=== PATIENT | female | born 1990 ===

== ENCOUNTER 2017-12-25 10:05 | Emergency (ER) | payer OTHER ==
[~2017-12-25] VITALS: Ht 149.9 cm; Wt 46.3 kg
[2017-12-25] MEDS ORDERED: ULTRACET PO (13:45)
[2017-12-25] MEDS ORDERED: KETO10TA2 PO (13:45)
[2017-12-25] MEDS ORDERED: SKELAXIN800 MG PO (13:45)
== END 2017-12-25 13:53 | disposition home or self-care (01) ==
LOC: ER 10:05
DX: S83.8X2A Sprain of other specified parts of left knee, initial encounter (principal); X50.0XXA Overexertion from strenuous movement or load, initial encounter; Y93.89 Activity, other specified; Y92.098 Other place in other non-institutional residence as the place of occurrence of the external cause; Y99.8 Other external cause status